=== PATIENT | male | born 1935 | race Caucasian/White ===

== ENCOUNTER 2019-11-11 00:28 | Day surgery (SDC) | payer OTHER, SELFPAY ==
[2019-10-30 13:00] VITALS: BMI 36.1
--- NOTE | 2019-11-10 22:04 | HP_ITS ---
DATE OF SERVICE: 11/11/2019 Date of planned service will be 11/11/2019. DIAGNOSIS: Severe right carpal tunnel syndrome. HISTORY: The patient is 84. He is a right-hand dominant patient, who presented with a nerve conduction test from last year indicating severe bilateral carpal tunnel syndrome. He has neurogenic changes in both hands. He gets numb in the radial 3-1/2 digits. This has been going on for years. It has gotten more uncomfortable in the past few months. We discussed surgery for this. He understands that the incision is about an inch long. There may be nerve injury, tendon injury, infection, hematoma, little to no recovery of sensation or motor function in his lifetime, but he would like to proceed. ALLERGIES: HE HAS NO KNOWN ALLERGIES TO MEDICATIONS. MEDICATIONS: His current medication list includes rosuvastatin, lisinopril, atenolol, aspirin 81 mg, and furosemide. PAST SURGICAL HISTORY: Recalls 1 surgery 12 years ago, but not by name. He sees no other specialist. He is a nonsmoker. REVIEW OF SYSTEMS: Otherwise negative. FAMILY HISTORY: Noncontributory. SOCIAL HISTORY: He lives in [place]. He is retired. He lists his son as a contact. PHYSICAL EXAMINATION: GENERAL: He is a well-spoken gentleman, in no acute distress. HEENT: Unremarkable. CHEST: Clear to auscultation. HEART: Regular rate and rhythm by palpation. ABDOMEN: Soft, nontender. EXTREMITIES: Reveals decreased sensation in the radial digits and a decreased client support analyst power. There is no Tinel's or provocative pain. ASSESSMENT: Severe bilateral carpal tunnel syndrome. The plan is for right open carpal tunnel release. He prefers this under local anesthetic. He will remain on his aspirin. D I MT: Amanda ARAGON
[2019-11-11 06:23] VITALS: BP 141/75; PULSE 71; RESP 18; TEMP 36.4; O2SAT 92
--- NOTE | 2019-11-11 07:18 | WPDHPUPDATE1 ---
History and Physical Update Update Date/Time: 11/11/19 07:18 History and Physical has been reviewed, including an updated exam of the patient. There are NO changes in the patient's condition. Risks, benefits, and alternatives have been discussed and questions answered. Patient agrees to proceed with procedure.
[2019-11-11 07:42] VITALS: BP 149/94; PULSE 63; RESP 18; TEMP 36.4; O2SAT 94
[2019-11-11 07:52] VITALS: BP 130/101; PULSE 63; RESP 18; TEMP 36.4; O2SAT 94
[2019-11-11] MEDS: LIDO 1%/EPINEPHRINE 1:100,000 20 ML VIAL 10 ML INFILTRATE (07:52)
[2019-11-11 07:58] VITALS: BP 138/94; PULSE 63; RESP 18; TEMP 36.4; O2SAT 94
--- NOTE | 2019-11-11 08:02 | PM.OP ---
Procedure Note - Brief Procedure Note - Brief Date of procedure: 11/11/19 Pre-op diagnosis: Right Carpal Tunnel Syndrome Post-op diagnosis: same Procedure performed: R OCTR Anesthesia: local Surgeon: Nolan Kat MD Estimated blood loss (mL): 2 Drains: No Packing: No Pathology: none sent Complications: No immediate complications Condition: stable Disposition: same day
[2019-11-11 08:06] VITALS: BP 121/96; PULSE 64; RESP 16; O2SAT 99
--- NOTE | 2019-11-11 09:52 | PM.PROC ---
Procedure Note - Detailed Date of procedure: 11/11/19 Pre-op diagnosis: Right Carpal Tunnel Syndrome Post-op diagnosis: same Description of procedure: The appropriate site was marked while patient was in preop. He was taken to the operating room placed supine on the operating table. A time-out was held and confirmed. The site was remarked and the extremity was prepped and draped usual fashion. The site was locally infiltrated with 1% lidocaine with epinephrine. The tourniquet was inflated to 250 mmHg. This the incision was made as marked and dissection was carried bluntly through the subcutaneous tissue to the palmar fascia. This and the carpal ligament was divided with a 15 blade. Under 3 point retraction the division was continued distally and proximally for complete release. The skin wound was closed with interrupted 4-0 nylon suture. No unusual anatomy was noted. The usual bandage was applied. Is discharged with instructions in wound care and follow-up is a prescription for tramadol 8. Surgeon: Nolan Kat MD
== END 2019-11-11 08:25 | disposition home or self-care (01) ==
PROVIDERS: PCP Family Medicine; Visit Provider Plastic Surgery
PROC: (CPT 64721; principal; 2019-11-11 07:30)
DX: G56.01 Carpal tunnel syndrome, right upper limb (principal); Z79.82 Long term (current) use of aspirin
CPT/HCPCS: 64721; A9270

== ENCOUNTER 2020-03-28 00:37 | Outpatient (CLI) | payer OTHER, SELFPAY ==
[2020-03-28 18:42] LABS: SARS-CoV-2 RNA PCR Negative
== END 2020-03-28 00:38 | disposition home or self-care (01) ==
LOC: ANHCOVIDDT 00:37
PROVIDERS: PCP Family Medicine; Visit Provider Plastic Surgery
DX: Z01.812 Encounter for preprocedural laboratory examination (principal); Z11.59 Encounter for screening for other viral diseases
CPT/HCPCS: 87635; C9803; U0003

== ENCOUNTER 2020-03-30 01:37 | Day surgery (SDC) | payer OTHER, SELFPAY ==
[2020-03-24 13:39] VITALS: BMI 37.1
--- NOTE | 2020-03-29 19:56 | HP_ITS ---
DATE OF SERVICE: 03/30/2020 PREOPERATIVE DIAGNOSIS: Left carpal tunnel syndrome. HISTORY: The patient is 84. He is referred by Dr. Iyer with carpal tunnel symptoms. He had a nerve conduction test 07/14/2019 indicating severe bilateral carpal tunnel syndrome. The EMG was positive for neurogenic changes in both abductor pollicis brevis muscles, that finding is consistent with his physical exam. The patient admits to having had symptoms for years, but had gotten a lot worse in recent months. He presented in October, complaining that he often drops items he is trying use, his cold reduction roller power has diminished. He sometimes gets a sudden pain in his wrist. ALLERGIES: HE LISTS NO KNOWN ALLERGIES. CURRENT MEDICATION LIST: In October was rosuvastatin, lisinopril, atenolol, 81 mg aspirin, and furosemide. PAST SURGICAL HISTORY: He said he has had some other surgery 12 years ago and not certain what that was for. REVIEW OF SYSTEMS: Indicates he has a history of shingles. FAMILY HISTORY: Noncontributory. SOCIAL HISTORY: He is a nonsmoker. Lives in [place]. He is retired. PHYSICAL EXAMINATION: GENERAL: He is listed at 5 feet 7, 230 pounds. He is alert and informative. HEENT: Unremarkable. CHEST: Clear to auscultation. HEART: Regular rate and rhythm by palpation. ABDOMEN: Soft and nontender. EXTREMITIES: Appear normal, but function with some deficits in limitations, although he seems to overcome a lot of that over the years. DIAGNOSIS: Severe bilateral carpal tunnel syndrome. PLAN: He has elected to undergo left open carpal tunnel release, the right having been done earlier this year, that procedure allowed him to make a full fist; however, the radial 3 digits still lack exquisite sensitivity. D I [facility]: [facility]
--- NOTE | 2020-03-30 07:20 | WPDHPUPDATE1 ---
History and Physical Update Update Date/Time: 03/30/20 07:20 History and Physical has been reviewed, including an updated exam of the patient. There are NO changes in the patient's condition. Risks, benefits, and alternatives have been discussed and questions answered. Patient agrees to proceed with procedure.
[2020-03-30 07:59] VITALS: BP 148/87; PULSE 45; RESP 18; TEMP 36.9; O2SAT 99
[2020-03-30 08:50] VITALS: BP 162/113; PULSE 58; RESP 18; O2SAT 100
[2020-03-30 09:00] VITALS: BP 161/111; PULSE 60; RESP 18; O2SAT 99
[2020-03-30] MEDS: LIDO 1%/EPINEPHRINE 1:100,000 20 ML VIAL INFILTRATE (09:03)
[2020-03-30 09:10] VITALS: BP 164/107; PULSE 65; RESP 18; O2SAT 98
--- NOTE | 2020-03-30 09:17 | ECG_ITS ---
Measurements Intervals [place] Rate: 55 P: IA: 0 QRS: -26 QRSD: 103 T: 1 QT: 424 QTc: 407 Interpretive Statements ATRIAL FIBRILLATION WITH SLOW VENTRICULAR RESPONSE INFERIOR INFARCT, AGE INDETERMINATE ABNORMAL ECG Electronically Signed On 03-30-2020 12:04:23 CDT by Favio Valladares D.O.
[2020-03-30 09:19] VITALS: BP 153/98; PULSE 55; RESP 12; O2SAT 95
--- NOTE | 2020-03-30 09:19 | PM.OP ---
Procedure Note - Brief Procedure Note - Brief Date of procedure: 03/30/20 Pre-op diagnosis: Left Carpal Tunnel Syndrome Post-op diagnosis: same Procedure performed: L OCTR Anesthesia: local Surgeon: Nolan Kat MD Process Assistant: t Estimated blood loss (mL): 0 Tourniquet time (min): 0 Drains: No Packing: No Complications: No immediate complications Condition: stable
--- NOTE | 2020-03-30 09:42 | SUR.PHASEII ---
0928 12 lead ekg done and dr roland aware of results and talked to pt to refer results to primary.
[2020-03-30 09:45] VITALS: BP 150/76; PULSE 54; RESP 14
--- NOTE | 2020-03-30 12:17 | P.OP_ITS ---
Procedure Note - Detailed Date of procedure: 03/30/20 Pre-op diagnosis: Left Carpal Tunnel Syndrome Post-op diagnosis: same Procedure performed: Left open carpal tunnel release Description of procedure: The site was marked on patient hand the holding area. He was taken to the operating room and placed supine on the operating table. A time-out was held and confirmed. The site was remarked for the incision and locally infiltrated with 1% lidocaine with epinephrine. No tourniquet was utilized. The incision was made as marked and dissection was carried bluntly through the subcutaneous tissue to the palmar fascia this and the carpal li gament were incised with a 15. Bard-Cheo blade. The canal was opened and the ligament visualized under 3 point retraction and divided distally and proximally for complete release. There was no unusual anatomy. The wound was closed with interrupted 4-0 nylon suture. The usual bandage was applied. He is discharged home with instructions in wound care and follow-up. He has a supply of hydroco done at home left over from his previous procedure and requested no more. He was discharged home with instructions in wound care and follow-up Surgeon: Nolan Kat MD
== END 2020-03-30 09:50 | disposition home or self-care (01) ==
PROVIDERS: PCP Family Medicine; Visit Provider Plastic Surgery
PROC: (CPT 64721; principal; 2020-03-30 09:00)
DX: G56.02 Carpal tunnel syndrome, left upper limb (principal); Z79.82 Long term (current) use of aspirin
CPT/HCPCS: 64721; 93005; A9270

== ENCOUNTER 2021-02-27 12:27 | Outpatient (CLI) | payer OTHER, SELFPAY ==
--- NOTE | ~2021-02-27 | XR_ITS ---
EXAMINATION: XR lg joint inject/asp w image DATE: 02/27/2021 13:41 INDICATION: Right hip osteoarthritis TECHNIQUE: A time-out was performed to verify the patient's name, date of , and procedure to b e performed. The procedure including the risks, benefits, and alternatives was discussed with the pat ient. Risks discussed included bleeding and infection. The patient understood the risks and agreed to proceed. The skin overlying the right hip joint was prepped and draped in usual sterile fashion. A nesthetic was administered with 1% lidocaine subcutaneously. A 22 G needle was advanced under fluoro scopic guidance into the joint. Injection of 1 mL of Omnipaque 240 confirmed intra-articular positio n of the needle. Subsequently, injectate consisting of 4 mm of a 3:1 mixture of 1% lidocaine: 80 mg/ mL Depo-Medrol for a total dosage of 80 mg Depo-Medrol was instilled. Washout of contrast was seen co nfirming intra-articular administration. The needle was removed and the entry site was cleaned and dr essed. There were no immediate complications. Fluoroscopy exposure time was 0.1 minutes. The total n umber of images was 2. Total DAP was 0.63 mGycm^2 FINDINGS: Real-time fluoroscopy demonstrates the needle in the right hip joint. Patient's pain prior to procedure:0/10. Patient's pain following the procedure: 0/10. There is severe right hip osteoarth ritis with essentially [id number] apposition superiorly with remodeling and flattening of the apex of the femoral head. IMPRESSION: 1. Right hip joint injection of local anesthetic and steroid. Reviewed, dictated and finalized at location A.
== END 2021-02-27 12:28 | disposition home or self-care (01) ==
LOC: ANHIMG 12:36
PROVIDERS: PCP Family Medicine; Visit Provider Orthopaedic Surgery
DX: M16.11 Unilateral primary osteoarthritis, right hip (principal)
CPT/HCPCS: 20610; 77002; J1040; Q9966

== ENCOUNTER 2021-03-21 13:28 | Outpatient (CLI) | payer OTHER, SELFPAY ==
--- NOTE | ~2021-03-21 | MR_ITS ---
EXAMINATION: MR shoulder RT wo con DATE: 03/21/2021 14:30 INDICATION: Chronic right shoulder pain. TECHNIQUE: Magnetic resonance imaging (MRI) of the right shoulder was performed without intravenous c ontrast. Sequences included axial PD-weighted FS FSE, coronal oblique PD-weighted FS FSE and T2-weigh rianna FS FSE, and sagittal oblique T2-weighted FS FSE and T1-weighted FSE. COMPARISON: None. FINDINGS: Coracoacromial arch: The acromion undersurface is flat in morphology (type I). There is remodeling of the undersurface of the acromion. There is severe acromioclavicular joint osteoarthritis including inferiorly directed os teophytes. There is an effusion of acromioclavicular joint. There is a multiloculated ganglion cyst s uperior to glenohumeral joint measuring 4.3 x 1.6 x 1.6 cm. There is severe subacromial/subdeltoid bu rsitis. Rotator cuff: There is a full-thickness tear involving supraspinatus and infraspinatus tendons measuring 5.0 cm ant erior to posterior by greater than 6 cm proximal to distal. Teres minor tendon is normal. There is se karthik subscapularis tendinopathy with partial tear. There is volume loss of supraspinatus and infraspi natus muscle bellies. There is a partial tear of the myotendinous junction of infraspinatus with flui d collection. There is severe fatty atrophy of infraspinatus muscle belly. Biceps tendon and glenoid labrum: There is a complete tear of proximal biceps tendon. There is widespread tearing of the glenoid labrum . Fluid: There is a large glenohumeral joint effusion with heterogeneous signal intensity. Bones/cartilage: There is extensive partial thickness cartilage loss of humeral head, deep at the inferior anterior me dial articular surface. There is shallow partial-thickness cartilage loss of glenoid. Osteophytes are noted. IMPRESSION: 1. Massive full-thickness rotator cuff tear. 2. Complete tear of proximal biceps tendon. 3. Moderate glenohumeral joint chondrosis. 4. Severe acromioclavicular joint osteoarthritis. 5. Large glenohumeral joint effusion and severe subacromial/subdeltoid bursitis. 6. Ganglion cyst superior to acromioclavicular joint. Reviewed, dictated and finalized at location A. IMPRESSION: 1. Massive full-thickness rotator cuff tear. 2. Complete tear of proximal biceps tendon. 3. Moderate glenohumeral joint chondrosis. 4. Severe acromioclavicular joint osteoarthritis. 5. Large glenohumeral joint effusion and severe subacromial/subdeltoid bursitis . 6. Ganglion cyst superior to acromioclavicular joint.
== END 2021-03-21 13:29 | disposition home or self-care (01) ==
PROVIDERS: PCP Family Medicine; Visit Provider Nurse Practitioner Psychiatric/Mental Health
DX: I48.19 Other persistent atrial fibrillation (principal); M75.101 Unspecified rotator cuff tear or rupture of right shoulder, not specified as traumatic; M19.011 Primary osteoarthritis, right shoulder; M25.411 Effusion, right shoulder; S46.211A Strain of muscle, fascia and tendon of other parts of biceps, right arm, initial encounter; X58.XXXA Exposure to other specified factors, initial encounter
CPT/HCPCS: 73221

== ENCOUNTER 2021-06-01 08:33 | Outpatient (CLI) | payer OTHER, SELFPAY ==
--- NOTE | ~2021-06-01 | XR_ITS ---
EXAMINATION: XR lg joint inject/asp w image DATE: 06/01/2021 09:43 INDICATION: Right hip pain and osteoarthritis TECHNIQUE: A time-out was performed to verify the patient's name, date of , and procedure to b e performed. The procedure including the risks, benefits, and alternatives was discussed with the pat ient. Risks discussed included bleeding and infection. The patient understood the risks and agreed to proceed. The skin overlying the right hip joint was prepped and draped in usual sterile fashion. A nesthetic was administered with 1% lidocaine subcutaneously. A 22 G needle was advanced under fluoro scopic guidance into the joint. Injection of 1 mL of Omnipaque 240 confirmed intra-articular positio n of the needle. Subsequently, injectate consisting of 4 mL of a 3:1 mixture of 1% lidocaine: 80 mg/ mL Depo-Medrol for a total dosage of 80 mg Depo-Medrol was instilled. Washout of contrast was seen co nfirming intra-articular administration. The needle was removed and the entry site was cleaned and dr essed. There were no immediate complications. Fluoroscopy exposure time was 0.1 minutes. The total n umber of images was 2. FINDINGS: Real-time fluoroscopy demonstrates the needle in the right hip joint. Patient's pain prior to procedure:3/10. Patient's pain following the procedure: 0/10. IMPRESSION: 1. Successful right hip joint injection of local anesthetic and steroid with decrease in the patient' s presenting pain. Reviewed, dictated and finalized at location A. IMPRESSION: 1. Successful right hip joint injection of local anesthetic and steroid with de crease in the patient's presenting pain.
== END 2021-06-01 08:34 | disposition home or self-care (01) ==
LOC: ANHIMG 08:37
PROVIDERS: PCP Family Medicine; Visit Provider Orthopaedic Surgery
DX: M25.551 Pain in right hip (principal); M17.11 Unilateral primary osteoarthritis, right knee
CPT/HCPCS: 20610; 77002; J1040; Q9966

== ENCOUNTER 2021-09-06 12:18 | Outpatient (CLI) | payer OTHER, SELFPAY ==
--- NOTE | ~2021-09-06 | XR_ITS ---
EXAMINATION: XR lg joint inject/asp w image DATE: 09/06/2021 12:55 INDICATION: Right hip osteoarthritis. TECHNIQUE: A time-out was performed to verify the patient's name, date of , and procedure to b e performed. The procedure including the risks, benefits, and alternatives was discussed with the pat ient. Risks discussed included bleeding and infection. The patient understood the risks and agreed to proceed. The skin overlying the right hip joint was prepped and draped in usual sterile fashion. A nesthetic was administered with 1% lidocaine subcutaneously. A 22 G needle was advanced under fluoro scopic guidance into the joint. Injection of 1 mL of Omnipaque 240 confirmed intra-articular positio n of the needle. Subsequently, injectate consisting of 3 mL 1% lidocaine and 2 mL 40 mg/mL Kenalog w as instilled. The needle was removed and the entry site was cleaned and dressed. There were no imme diate complications. Fluoroscopy exposure time was 0.0 minutes. The total number of images was 2. FINDINGS: Real-time fluoroscopy demonstrates the needle in the right hip joint. Patient's pain prior to procedure:8/10. Patient's pain following the procedure: 6/10. IMPRESSION: 1. Fluoroscopy guided right hip joint injection of local anesthetic and steroid with decrease in the patient's presenting pain. Reviewed, dictated and finalized at location A. CLERK
== END 2021-09-06 12:19 | disposition home or self-care (01) ==
LOC: ANHIMG 12:21
PROVIDERS: PCP Family Medicine; Visit Provider Orthopaedic Surgery
DX: M25.551 Pain in right hip (principal); M16.11 Unilateral primary osteoarthritis, right hip
CPT/HCPCS: 20610; 77002; J1030; Q9966

== ENCOUNTER 2022-01-10 08:38 | Outpatient (CLI) | payer MEDICARE, SELFPAY ==
--- NOTE | ~2022-01-10 | XR_ITS ---
EXAMINATION: XR lg joint inject/asp w image DATE: 01/10/2022 09:55 INDICATION: Right hip primary osteoarthritis. TECHNIQUE: A time-out was performed to verify the patient's name, date of , and procedure to b e performed. The procedure including the risks, benefits, and alternatives was discussed with the pat ient. Risks discussed included bleeding and infection. The patient understood the risks and agreed to proceed. The skin overlying the right hip joint was prepped and draped in usual sterile fashion. A nesthetic was administered with 1% lidocaine subcutaneously. A 22 G needle was advanced under fluoro scopic guidance into the joint. Injection of 1 mL of Omnipaque 240 confirmed intra-articular positio n of the needle. Subsequently, injectate consisting of 3 mL 1% lidocaine and 1 mL 80 mg/mL Depo-Medr ol was instilled. The needle was removed and the entry site was cleaned and dressed. There were no immediate complications. Fluoroscopy exposure time was 0.1 minutes. The total number of images was 2. FINDINGS: Real-time fluoroscopy demonstrates the needle in the right hip joint. Patient's pain prior to procedure:06/25. Patient's pain following the procedure: 01/23. IMPRESSION: 1. Fluoroscopy guided right hip joint injection of local anesthetic and steroid with decrease in the patient's presenting pain. Reviewed, dictated and finalized at location A.
== END 2022-01-10 08:39 | disposition home or self-care (01) ==
PROVIDERS: PCP Internal Medicine; Visit Provider Orthopaedic Surgery
DX: M25.551 Pain in right hip (principal)
CPT/HCPCS: 20610; 77002; J1040; Q9966

== ENCOUNTER 2023-01-14 14:45 | Outpatient (RCR) | payer MEDICARE, SELFPAY ==
--- NOTE | 2022-12-31 10:11 | PTOPEVAL1 ---
Assessment and note entered by Karolyn Urrutia, PT, CLT Evaluation Information Assessment Status Evaluation Diagnosis R and L LE lymphedema Subjective Information wear thigh high compression socks, have a home pump, [employer] with both legs and trunk, but it does not help; Reported Pain Level Pain Score 2: Self Report Additional Pain Score Comments legs are heavy Assessment PT Clinical Summary Norris has the diagnosis of R and L LE lymphedema. He has compression thigh high garments and a home pump, but states his legs are getting bigger. At home, he has a helper 2x/day that assists him with the garments. His medical history includes recent wt gain of about 20#, HTN, cardiac stents, sleep apnea, prostatectomy, R THR and non surgical aortic aneurysms. With the evaluation, he has decreased R and L knee flexion due to lymphedema, tissue and skin changes of both legs, with small, superficial wound over R anterior munson. Circumferential measurement of leg, to 72 cm from bottom of foot: R 901.3 cm and L 885.5 cm. Skilled PT services are indicated for lymphedema care--complete decongestive therapy, manual lymph drainage, intermittent compression wraps and leg exercises, with education and recommendation for compression garments for him to obtain. Plan of Care Interventions Lymphedema treatment, Manual Lymph Drainage, Patient/Caregiver Education,Therapeutic Exercise PT Services Indicated Yes Treatment Frequency and 0-3x/wk for 6 weeks, due to availability of Duration therapist to initiate treatment These treatments will address the objective and functional deficits as defined above. The patient will be advanced safely and appropriately in order for the patient to progress towards his/her prior level of function. Additional exercises will be introduced and as well as a comprehensive home exercise program upon discharge, if needed, ?to ensure carryover of functional gains achieved in the clinic. This treatment plan has been reviewed and agreement upon by the patient.
--- NOTE | 2023-01-24 16:24 | PTOPDC ---
Assessment and note entered by Karolyn Urrutia, PT Evaluation Information Assessment Status Discharge - Pt Not Presen Diagnosis R and L LE lymphedema Assessment PT Clinical Summary Norris has received 5 PT sessions for R and L LE lymphedema. He then canceled all of his appointments and said he did not want anymore therapy, did not want to come anymore, felt like it was not really helping. He had received the compression wraps on his L leg and had good reduction, with the circumferential measurement decreased by 47.7 cm and improved skin integrity. The goals were not assessed. Discharge PT treatment per pt request. Plan of Care PT Services Indicated No
== END 2023-01-25 08:24 | disposition home or self-care (01) ==
LOC: ANHPT 14:45
PROVIDERS: PCP Physician Assistant Medical; Visit Provider Physician Assistant Medical
DX: I89.0 Lymphedema, not elsewhere classified (principal)
CPT/HCPCS: 29581; 97140; 97161

== ENCOUNTER 2023-06-03 06:37 | Inpatient (IN) | payer MEDICARE, SELFPAY ==
[2023-06-03] VITALS (8 sets, daily range): BP systolic 69–161; BP diastolic 52–122; PULSE 57–163; RESP 15–28; TEMP 36.2–36.6; O2SAT 92–100; BMI 43.0
--- NOTE | ~2023-06-03 | CT_ITS ---
EXAMINATION: CTA abdomen pelvis DATE: 06/03/2023 09:08 INDICATION: Abdominal aortic aneurysm with abdominal pain TECHNIQUE: Computed tomographic angiography (CTA) of the abdomen and pelvis was performed with 100 mL Omnipaque-350 intravenous contrast. Maximum intensity projection 3D-reconstructions of the aorta and other arteries were constructed by the technologist on a separate workstation. The dose-length produ ct (DLP) was 1505.13 mGy-cm. Automated exposure control and iterative reconstruction technique were e mployed. COMPARISON: 0817 hours FINDINGS: Aneurysms of the aorta and iliac arteries are similar to description in the previous report . There is now a 14.8 x 10.2 cm acute hematoma in the anterior abdomen and pelvis. There is also incr ease in hyperattenuating fluid in the right abdomen and pelvis. Findings are consistent with aneurysm rupture. The lung bases demonstrate mild atelectasis. Cardiomegaly is noted. There is calcified donny nary artery atherosclerosis. The liver, spleen, pancreas, gallbladder, and adrenal glands are normal. There is moderate to severe right and moderate left hydronephrosis. There is mild lymphadenopathy of the right pelvis. Colonic diverticulosis is present without evidence of diverticulitis. No free intr aperitoneal gas or evidence of bowel obstruction. There is severe lumbar spondylosis. There are shook es of right hip arthroplasty. IMPRESSION: 1. Findings consistent with aneurysm rupture, likely one of the right common iliac artery aneurysms, with enlarging acute hematoma in pelvis. Emergent vascular surgical evaluation is indicated however t he patient reportedly does not desire treatment. These findings and recommendations were discussed wi Dr. Robinson Rider MD in the Emergency Department at 0913 hours on 06/03/2023. Reviewed, dictated and finalized at location B. IMPRESSION: 1. Findings consistent with aneurysm rupture, likely one of the right common il iac artery aneurysms, with enlarging acute hematoma in pelvis. Emergent vascula r surgical evaluation is indicated however the patient reportedly does not patricia re treatment. These findings and recommendations were discussed with Dr. Robinson Rider MD in the Emergency Department at 0913 hours on 06/03/2023.
--- NOTE | ~2023-06-03 | CT_ITS ---
EXAMINATION: CT abdomen pelvis wo con DATE: 06/03/2023 08:25 INDICATION: Suprapubic abdominal pain TECHNIQUE: Computed tomography (CT) of the chest was performed without intravenous contrast. The dose -length product (DLP) was 1252.23 mGy-cm. Automated exposure control and iterative reconstruction tunde hnique were employed. COMPARISON: None FINDINGS: Minimal dependent atelectasis is present in the lung bases. Cardiomegaly is noted. There is calcified coronary artery atherosclerosis. The liver, spleen, pancreas, gallbladder, and adrenal gla nds are normal. There is moderate to severe right and moderate left hydronephrosis of the kidneys. Th ere is a 7.7 cm fusiform aneurysm of the infrarenal abdominal aorta. There is a 5.8 cm fusiform aneur ysm of the right common iliac artery. There is a 4.2 cm fusiform aneurysm of the left common iliac ar bull. There is a 10.0 cm saccular aneurysm of the right common iliac artery extending into the pelvis with probable partial thrombosis. There is inflammatory change in the right lower quadrant adjacent to the right common iliac saccular aneurysm. The bladder is decompressed by Alvarado catheter. There is mild lymphadenopathy in the right lower quadrant. No free intraperitoneal gas or evidence of bowel ob struction. Colonic diverticulosis is present without evidence of diverticulitis. There is a tiny umbi lical hernia containing fat. There is severe lumbar spondylosis. There are changes of right hip arthr oplasty. IMPRESSION: 1. Multiple aneurysms as described above. Inflammatory change surrounding the large saccular aneurysm of the right common iliac artery raises concern for impending rupture. Emergent vascular surgical ev aluation is indicated however patient reportedly does not desire treatment. These findings and recomm endations were discussed with Dr. Robinson Rider MD in the Emergency Department at 0842 hours on 06/03/2023. Reviewed, dictated and finalized at location B. IMPRESSION: 1. Multiple aneurysms as described above. Inflammatory change surrounding the l arge saccular aneurysm of the right common iliac artery raises concern for impe nding rupture. Emergent vascular surgical evaluation is indicated however patie nt reportedly does not desire treatment. These findings and recommendations wer e discussed with Dr. Robinson Rider MD in the Emergency Department at 0842 hours on 06/03/2023.
--- NOTE | 2023-06-03 06:57 | PC.NURSE ---
This RN put urinal at bedside in attempt to obtain urine sample from pt. Pt and visitor aware of needed sample.
[2023-06-03 07:00] LABS: Basophils Absolute Auto 0.1 K/mm3 (0.0-0.1); Basophils Percent Auto 0.4 % (0.2-1.2); Eosinophils Percent Auto 0.2 % (0-4.4); Hematocrit 29.5 % (42.0-52.0); Hemoglobin 9.6 g/dL (14.0-18.0); Immature Granulocyte Absolute 0.05 K/mm3 (0.00-0.031); Immature Granulocyte Percent A 0.4 % (0-0.5); Lymphocytes Absolute Auto 1.36 K/mm3 (0.9-3.2); Lymphocytes Percent Auto 11.8 % (18.3-44.2); Mean Corpuscular HGB Conc 32.5 g/dl (32-36); Mean Corpuscular Hemoglobin 31.1 pg (26-34); Mean Corpuscular Volume 95.5 fl (80-100); Mean Platelet Volume 10.7 fl (7.4-10.4); Monocytes Absolute Auto 1.1 K/mm3 (0.1-0.6); Monocytes Percent Auto 9.3 % (2.6-8.5); Neutrophils Percent Auto 77.9 % (45.5-73.1); Platelet Count Result 196 k/mm3 (150-375); Red Blood Count 3.09 M/mm3 (4.6-6.20); Red Cell Distribution Width 14.4 % (11.5-14.5); White Blood Count 11.5 K/mm3 (4.5-10.0)
[2023-06-03 07:11] LABS: Alanine Aminotransferase 16 U/L (6-50); Albumin Level 4.3 g/dL (3.5-5.1); Alkaline Phosphatase 47 U/L (38-126); Anion Gap 14 mmol/L (8-16); Aspartate Amino Transferase 26 U/L (17-59); Blood Urea Nitrogen 56 mg/dL (9-20); Calcium 9.1 mg/dL (8.4-10.2); Carbon Dioxide 21 mmol/L (22-30); Chloride 104 mmol/L (98-107); Estimated Glomerular Filt Rate 21; Glucose 127 mg/dL (65-110); Lipase 85 U/L (23-300); Sodium 139 mmol/L (137-145)
--- NOTE | 2023-06-03 07:18 | ED.ABDPAIN ---
HPI - Abdominal Pain General Chief Complaint: Abdominal Pain Stated Complaint: Abdominal pain Time Seen by Provider: 06/03/23 06:58 History of Present Illness HPI narrative: This is an 88-year-old male, with past history of hypertension, lymphedema and hypothyroidism, presents to the emergency department complaining of suprapubic abdominal pain. The patient states his pain is cramping, rated 7/10 and does not radiate. This is associated with difficulty urinating, dribbling and the sensation of having to have a bowel movement. The patient states he has constipation, though is passing gas. He denies pain elsewhere, lightheadedness or bleeding. Related Data Home Medications Medication Instructions Recorded Confirmed aspirin 81 mg chewable tablet 81 mg PO DAILY 09/08/19 06/03/23 (Nannette Chewable Low Dose Aspirin) rivaroxaban 20 mg tablet 20 mg PO DAILY 07/19/22 06/03/23 cyanocobalamin (vitamin B-12) 1,000 mcg PO DAILY 08/01/22 06/03/23 1,000 mcg capsule Allergies Allergy/AdvReac Type Severity Reaction Status Date / Time clindamycin AdvReac dyspepsia Verified 06/03/23 06:50 doxycycline AdvReac photosensitivity Verified 06/03/23 06:50 rash Review of Systems Review of Systems: CONSTITUTIONAL: Denies fever, chills, or sweats. CARDIOVASCULAR: Denies chest pain, palpitations, or edema. RESPIRATORY: Denies cough or dyspnea. GASTROINTESTINAL: Abdominal pain denies nausea, vomiting, or diarrhea. GENITOURINARY: Difficulty urinating denies dysuria or hematuria. SKIN: Denies rash or itching. MUSCULOSKELETAL: Denies back pain, joint pain, or myalgia. NEUROLOGIC: Denies headache, numbness, dizziness, or weakness. PSYCHIATRIC: Denies anxiety or depression. [facility] Past Medical History Medical History AAA (abdominal aortic aneurysm) Anemia Aneurysm of right popliteal artery Aspirin long-term use Atrial fibrillation CAD (coronary artery disease) stent 2003 Chronic kidney disease Gout Hypothyroidism Iliac artery aneurysm, bilateral Left carpal tunnel syndrome Lymphedema bilateral lower extremities Neck pain Osteoarthritis Prostate CA Right carpal tunnel syndrome Sleep apnea, central Venous reflux Left greater saphenous vein Surgical History Surgical History H/O prostatectomy 2006 History of cardiac catheterization stents 2004 History of total right hip arthroplasty 06/05/22 Family History Family History Other Diabetes mellitus Family history of heart disease in male family member before age 55 Hypertension Social History Social History Smoking status: Never smoker Alcohol intake: unknown Drinks per week: 5 Substance use: unknown Lack of Transportation: No Lack of Food: Never True Current Housing: I Have Housing Concerned About Future Housing: Decline to Answer Difficulty Paying Gas/Electric Bills: Decline to Answer Difficulty Paying for Meds: Decline to Answer Currently Unemployed: Decline to Answer Education: Don't Know Difficulty w/ Childcare or Family Care: No Living arrangements: alone Occupation/Education: retired Gender identity (if verbalized by the patient): Male Spiritual care concerns: No Exam Narrative: GENERAL: Well-developed, well-nourished, in mild distress due to pain HEAD: Normocephalic, atraumatic. EYES: PERRLA and EOMI. CHEST: Clear to auscultation. No respiratory distress. No wheezes rales or rhonchi HEART: Regular rate and rhythm. No murmur heard. Normal peripheral pulses. ABDOMEN: Soft, tender to palpation in the suprapubic region, without rebound or guarding, distended, normal active bowel sounds. EXTREMITIES: Normal range of motion. Compression stockings are noted on both legs, with 2+ pitting edema SKIN:
[2023-06-03] MEDS: MORPHINE SULFATE (*CRX) 4 MG/ML INJ 2 MG IV PUSH (07:22)
[2023-06-03] MEDS: ONDANSETRON INJ 4 MG/2 ML VIAL IV PUSH (07:22)
--- NOTE | 2023-06-03 07:48 | PC.NURSE ---
Pt voices relief after placement of wright catheter.
[2023-06-03 08:06] LABS: Appearance Urine Clear (Clear); Bacteria Urine None Seen /hpf; Bilirubin Urine Negative (Negative); Blood Urine Trace (Negative); Color Urine Yellow (Yellow); Glucose Urine UA Negative (Negative); Ketones Urine Negative (Negative); Leukocyte Esterase Ur Negative LEU/UL (Negative); Nitrate Urine Negative (Negative); Non Pathogenic Casts 0-2; Protein Urine Negative (Negative); RBC Urine 0-2 /hpf (0-2); Specific Grav Ur 1.011 (1.001-1.035); Squamous Epithelial Cell Urine None seen /hpf (Few); Urobilinogen Urine 0.2 mg/dL (<2.0); WBC Urine 0-5 /hpf; pH Urine 5.5 (5.0-9.0)
[2023-06-03 08:10] LABS: Add Urine Microscopic? YES
[2023-06-03] MEDS: SODIUM CHLORIDE 0.9% IV 1,000 ML 999 ML IV CONT (08:12)
[2023-06-03] MEDS: MORPHINE SULFATE (*CRX) 4 MG/ML INJ IV PUSH ×3 (08:44→22:15)
--- NOTE | 2023-06-03 08:52 | PC.NURSE ---
Dr. Rider spoke with pt & pts son concerning end of life care. Pt voices he does not want any resuscitation efforts. Pt wright draining hematuria, wright irrigated small blood clot noted. Wright patent.
--- NOTE | 2023-06-03 09:44 | PC.NURSE ---
Pt to be admitted for palliavite care, RN on 3rd medical unable to take report.
--- NOTE | 2023-06-03 09:58 | PM.IMHP ---
H&P: HPI History of Present Illness Date/Time: 06/03/23 09:58 Chief Complaint: Abdominal pain Narrative: 88yo male with AFib on anticoagulation, multiple arterial aneurysms, CKD, and lymphedema who presents with complaints of abdominal pain. Patient developed abdominal pain last evening. Pain was mostly in the lower abdominal area. He was having decreasing urine output. No fever, chills, chest pain or SOB. He denies feeling lightheaded but felt lightheaded in ED. Patient is feeling constipated but is passing flatus. He was supposed to see his doctor today but pain became too severe so he presented to the ED for evaluation. In the ED, he was hemodynamically stable. He had Alvarado placed which returned 1400mL. He had improvement in his pain. Hgb 9.6 (Hgb 12.2 in October). Cr elevated at 2.8 (baseline around 1.2-1.8). 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 CTA showing now a 14.8x10.2cm acute hematoma in the anterior abdomen and pelvis consistent with rupture of the right common iliac artery aneurysm. SBP dropped to 64 but then improved. Patient is alert and oriented. He is wishing for comfort care. Family in the room and are supportive of the patient's decision. Patient is requesting morphine and is agreeable for morphine drip. Review of Systems Review of Systems: All systems reviewed & are unremarkable except as noted in HPI and below PMFSH Past Medical History Medical History AAA (abdominal aortic aneurysm) Anemia Aneurysm of right popliteal artery Aspirin long-term use Atrial fibrillation CAD (coronary artery disease) stent 2003 Chronic kidney disease Gout Hypothyroidism Iliac artery aneurysm, bilateral Left carpal tunnel syndrome Lymphedema bilateral lower extremities Neck pain Osteoarthritis Prostate CA Right carpal tunnel syndrome Sleep apnea, central Venous reflux Left greater saphenous vein Surgical History Surgical History H/O prostatectomy 2005 History of cardiac catheterization stents 2003 History of total right hip arthroplasty 06/05/22 Family History Family History Other Diabetes mellitus Family history of heart disease in male family member before age 55 Hypertension Social History Social History Smoking status: Never smoker Alcohol intake: current Drinks per week: 5 Substance use: never Lack of Transportation: No Lack of Food: Never True Current Housing: I Have Housing Concerned About Future Housing: No Difficulty Paying Gas/Electric Bills: No Difficulty Paying for Meds: No Currently Unemployed: No Difficulty w/ Childcare or Family Care: No Living arrangements: alone Occupation/Education: retired Gender identity (if verbalized by the patient): Male Spiritual care concerns: No Meds Home Medications and Allergies Home Medications Medication Instructions Recorded Confirmed Type aspirin 81 mg chewable tablet 81 mg PO DAILY 09/08/19 05/31/23 History (Nannette Chewable Low Dose Aspirin) [facility] 07[facility]19[facility]22 05/31/23 History rivaroxaban 20 mg tablet 20 mg PO DAILY 07/19/22 05/31/23 History Fiber one [facility] 08/01/22 05/31/23 History cyanocobalamin (vitamin B-12) 1,000 mcg PO DAILY 08/01/22 05/31/23 History 1,000 mcg capsule prune juice [facility] 08/01/22 05/31/23 History psyllium husk 3 gram/3 gram oral g PO 08/01/22 05/31/23 History powder silver sulfadiazine 1 % topical 1 applic topical BID #25 grams 02/25/23 05/31/23 Rx cream (Silvadene) furosemide 20 mg tablet See Rx Instructions .Route 03/06/23 05/31/23 Rx .COMPLEX #90 tabs furosemide 40 mg tablet 40 mg PO QAM 90 days #90 tabs 03/08/23 05/31/23 Rx atenolol 25 mg tabl
--- NOTE | 2023-06-03 10:03 | PC.NURSE ---
Pt speaking with care cooridnation of POC. Pt alert/oriented & aware of decisions he is making. Medicated for pain
--- NOTE | 2023-06-03 10:57 | ADMGEN ---
This patient, Tony Apodaca, was admitted to 3 [facility] Surg Room 312-01. Patient/family oriented to hospital policies and general routines including ID bracelet, bed and alarms, visiting hours, pain management, procedures, bathroom and other care routines, personal items, smoking policy, room service/diet, and visiting hours. Information on how to activate the Rapid Response Team has been discussed. Patient/Family are encouraged to report perceived risks to care and to ask questions if they do not understand what they are told or what they should do. Report from Annette. Guerrero charge nurse got report.
[2023-06-03] MEDS: MORPHINE SULFATE INJ (*CRX) 50 MG in SODIUM CHLORIDE 0.9% IV 95 ML IV CONT (11:22)
[2023-06-04] MEDS: LORazepam INJ (*CRX) 2 MG/ML VIAL 1 MG IV PUSH (00:22)
--- NOTE | 2023-06-04 07:44 | PC.NURSE ---
I have reviewed documentation completed by Azalea Crowley RN and agree with her assessments and documentation.
[2023-06-04 07:54] VITALS: BP 53/41; PULSE 126; RESP 16; TEMP 35.7; O2SAT 85
[2023-06-04 08:30] VITALS: RESP 8
--- NOTE | 2023-06-04 12:21 | P.DN_ITS ---
Discharge Summary Date and Time Date of : 06/04/23 Time of : 08:59 Provider Pronounced By: Dr. Greg Blanco Probable Cause of Probable Cause of : Ruptured aneurysm Summary Hospital Course: 88yo male with AFib on anticoagulation, multiple arterial aneurysms, CKD, and lymphedema who presents with complaints of abdominal pain. In the ED, he was hemodynamically stable. He had Alvarado placed which returned 1400mL. He had improvement in his pain. Hgb 9.6 (Hgb 12.2 in October). Cr elevated at 2.8 (baseline around 1.2-1.8). 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 CTA showing now a 14.8x10.2cm acute hematoma in the anterior abdomen and pelvis consistent with rupture of the right common iliac artery aneurysm. Systolic BP dropped to 64 but then improved. Patient was alert and oriented. He was wishing for comfort care. Family in the room and are supportive of the patient's decision. Patient was started on morphine and was admitted for further care. He initially remained stable but then his blood pressure dropped. He became unresponsive and subsequently passed on 06/04/23. Additional Data Confirmation of as documented by pronouncing clinician: Pupillary Reflex, Palpable Pulses, Response to Stimuli, Heart Tones and Breath Sounds Name of Provider Notified: Dr. Greg Blanco Time Provider Notified: 08:59 Provider Requests Autopsy: No Staff Radiographer Notified: Yes Date [facility] Notified of : 06/04/23 Time [facility] Notified of : 10:31
== END 2023-06-04 08:59 | disposition expired | DRG 301 ==
LOC: ANHED 07:20 → ANH3MEDSUR 09:42
PROVIDERS: Emergency Medicine; Admitting Provider Internal Medicine; Emergency Provider Preventive Medicine Aerospace Medicine; PCP Physician Assistant Medical; Visit Provider Internal Medicine
DX: I72.3 Aneurysm of iliac artery (principal); R33.9 Retention of urine, unspecified; I71.40 Abdominal aortic aneurysm, without rupture, unspecified; N18.9 Chronic kidney disease, unspecified; D64.9 Anemia, unspecified; I25.10 Atherosclerotic heart disease of native coronary artery without angina pectoris; I48.91 Unspecified atrial fibrillation; I89.0 Lymphedema, not elsewhere classified; F41.9 Anxiety disorder, unspecified; M19.90 Unspecified osteoarthritis, unspecified site; Z96.641 Presence of right artificial hip joint; Z85.46 Personal history of malignant neoplasm of prostate; Z79.82 Long term (current) use of aspirin; Z51.5 Encounter for palliative care
CPT/HCPCS: 36415; 74174; 74176; 80053; 81001; 83690; 85025; 96361; 96374; 96375; 96376; 99285; A9270; G0378; J2060; J2270; J2405; J7030; Q9967